=== PATIENT | female | born 1985 | race Caucasian/White ===

== ENCOUNTER → 2018-08-10 | Outpatient (CLI) | payer OTHER ==
[~2018-08-10] MED LIST: ACET650SUP; ALBIPROI; ALBIPROI INH; ALBU90OI; ALBU90OI INH; AZIT250 PO; AZIT500 PO; BUPR150T2; CEPH500 PO; CODGUAEL PO; CRUTCH USE; CYCL10 PO; Cleocin HCl150 MG PO; HYDACE10B PO; HYDACE5 PO; IBUP400; IBUP800; INDO25 PO; LEVFLO500 PO; MEDR10 PO; NAPR500 PO; NEOPOLHCSU RIGHTEAR; Naprosyn500 MG PO; OXYACE5T PO; PHENA200 PO; PRED10 PO; PRED20 PO; PROCODE120; PROM25 PO; RXCODGUASY PO; RXHYDACE PO; RXSULTRIDS PO; RXTRAM50 PO; SULTRIDS PO; TRAACE PO; TRAM50; [UNRECOGNIZED DRUG - REMARK]; [UNRECOGNIZED DRUG - REMARK]
[2018-08-14 15:06] LABS: HPV 16 Negative (Negative); HPV 18 Negative (Negative); HPV OTHER HR TYPES Negative (Negative)
== END ==
LOC: LAB SHORT 18:28 → LAB 18:28
PROVIDERS: Registered Nurse
DX: Z12.4 Encounter for screening for malignant neoplasm of cervix (principal)
CPT/HCPCS: 87624; G0123

== ENCOUNTER 2019-02-27 14:22 | Emergency (ER) | payer SELFPAY ==
[~2019-02-27] VITALS: Ht 182.9 cm; Wt 138.3 kg
[2019-02-27] MEDS ORDERED: Cleocin HCl150 MG PO (15:43)
== END 2019-02-27 15:45 | disposition home or self-care (01) ==
LOC: ER 14:22
DX: K04.7 Periapical abscess without sinus (principal); J45.909 Unspecified asthma, uncomplicated; F17.200 Nicotine dependence, unspecified, uncomplicated; Z88.0 Allergy status to penicillin
CPT/HCPCS: 99282